=== PATIENT | female | born 1930 | race Caucasian/White ===

== ENCOUNTER → 2016-10-02 | Outpatient (CLI) | payer MEDICARE, MEDICAID ==
[~2016-10-02] MED LIST: ACETAMINOPHEN500 M3 PO; ACYCLOVIR800 MG PO; ALDACTONE 25MG25 MG NG; BAYER ASPIRIN C81 MG PO; CALCITRIOL0.5 MCG PO; CARDIZEM CD120 MG PO; CARLSON VITAM2000 IU PO; CARVEDILOL3.125 MG PO; CLOPIDOGREL75 MG PO; DILTIAZEM HCL120 MG PO; FISH OIL1000 MG PO; GABAPENTIN100 M1 PO; GARLIC OIL1000 M1 PO; GARLIC OIL1000 MG PO; GARLIC500 MG PO; K-DUR 20MEQ TA20 MEQ PO; LASIX 20MG. TAB20 MG PO; MAREPA1200 MG PO; MECLIZINE HYDRO25 MG PO; MELATONIN5 M3 PO; METOPROLOL 25 M25 MG PO; NATURAL FISH1200 MG PO; OMNICEF 300 MG300 MG PO; PANTOPRAZOLE SO40 MG PO; POTASSIUM CHLO20 ME2 PO; SERTRALINE 50MG50 MG PO; SPIRONOLACTONE25 MG PO; TRIAMCINOL15 GM/TUBE TP; TRILEPTAL300 M1 PO; TYLENOL 8 HOUR650 MG PO; TYLENOL ES500 MG PO; VERAPAMIL HCL240 M1 PO; VITAMIN D1000 IU PO; WARFARIN2 MG PO; ZETIA10 MG PO
--- NOTE | 2016-10-03 22:29 | RADIOLOGY REPORT PS360 ---
DEXA SCAN.-BONE DENSITY STUDY HIPS AND LUMBAR SPINE HISTORY: Postmenopausal female postmenopausal female a 5-year-old. Taking vitamin D. Renal disease. TECHNIQUE: DEXA scan hip and lumbar spine The most complete data summary and color graphic presentation of the today's ( and any prior ) DEXA findings are available in PACS. Definition and treatment guidelines included. COMPARISON: December 2014 LUMBAR SPINE: Osteopenia L2 vertebral body demonstrates the lowest T score -3.9 with BMD0.735 g/cm sq = osteoporosis Also osteoporosis noted at L1 with a T score of -2.6 Overall mean lumbar L1-L4 T score -2.4 with BMD0.895 g/cm sq . 2015 prior DEXA the mean T score -1.7 with BMD was0.977g/cm sq Thus when comparing today's study to the prior exam there's been a 8.4% decreased mean bone density at the lumbar spine 2014 study RIGHT HIP: (Left hip not imaged) Femoral neck density is best predictor of hip fracture risk . Right femoral neck demonstrates T score -2.4 with BMD0.698 g/cm sq . Overall right hip Hip Mean T score -2.1 with BMD0.748 g/cm sq . December 2014 right hip T score -2.0 with mean BMD0.76 g/cm sq Thus this reflects a 1.6% decreasein overall mean bone density at the hips in the interval. Radius included today. DistalUD = T score -1.8 with BMD 0.386 Distal 33% radius with T score -3.1 with BMD 0.61 IMPRESSION 1. LUMBAR SPINE: Osteopenia. Overall T score -2.4 Osteoporosis at L2 4 T score = -3.9 . Osteoporosis at L1 with T score -2.6 2. RIGHT HIP . Osteopenia. With overall T score -2.1 3. Distal 1/3right radius with Osteoporosis. T score = -3.1 WHO criteria for post-menopausal, Women: Normal: T-score at or above -1 SD Osteopenia: T-score between -1 and -2.5 SD Osteoporosis: T-score at or below -2.5 SD
== END ==
LOC: RAD 10:24
DX: M81.0 Age-related osteoporosis without current pathological fracture (principal)

== ENCOUNTER → 2016-10-24 | Outpatient (CLI) | payer MEDICARE, MEDICAID ==
[2016-10-24 13:17] LABS: BUN 24 mg/dL (7-18)
[2016-10-24 13:18] LABS: GFR (ESTIMATED) 27 ML/MIN (59-)
[2016-10-26 14:37] LABS: Osteocalcin 34.2 ng/mL (.); Tandem-R Ostase 17.7 ug/L (.)
[2016-10-26 20:36] LABS: N-Telopeptide 16.6 (6.2-19.0)
== END ==
LOC: LAB 09:44
PROVIDERS: Internal Medicine Nephrology
DX: N18.3 Chronic kidney disease, stage 3 (moderate) (principal); I10 Essential (primary) hypertension; E78.2 Mixed hyperlipidemia; M81.0 Age-related osteoporosis without current pathological fracture

== ENCOUNTER → 2017-05-10 | Outpatient (CLI) | payer MEDICARE, MEDICAID ==
[~2017-05-10] MED LIST changes: +BISOPROLOL 5MG T5 MG PO; +MIRTAZAPINE15 M1 PO; +TYLENOL WITH CO1 TA1 PO
--- NOTE | 2017-05-10 10:44 | RADIOLOGY REPORT PS360 ---
HIP RT 2-3V W/PELVIS IF PERFOR HISTORY: Follow-up fracture/ORIF HEALING OF RT FEMUR FX ORDERING PHYSICIAN: Martin Knapp MD PATIENT AGE: 86 years COMPARISON: 03/29/2017 FINDINGS: Status post ORIF right subtrochanteric fracture with a long intramedullary ruthann in the nail in place stabilizing the fracture fragments which are in good alignment with some developing callus formation. IMPRESSION: Healing right subtrochanteric femoral neck fracture status post ORIF with good alignment
== END ==
LOC: RAD 09:27
DX: S72.141D Displaced intertrochanteric fracture of right femur, subsequent encounter for closed fracture with routine healing (principal)

== ENCOUNTER → 2017-07-19 | Outpatient (CLI) | payer MEDICARE, MEDICAID ==
--- NOTE | 2017-07-19 11:27 | RADIOLOGY REPORT PS360 ---
HIP RT 2-3V W/PELVIS IF PERFOR HISTORY: Follow-up fracture RT HIP FX ORDERING PHYSICIAN: Martin Knapp MD PATIENT AGE: 86 years COMPARISON: 05/10/2017 FINDINGS: No change right sciatic gamma nail with long intramedullary ruthann. Healing fracture involves the intertrochanteric region of the proximal femur with mild medial displacement of the distal fracture fragment x 11 mm. 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 IMPRESSION: No change status post ORIF right subtrochanteric fracture with good alignment
== END ==
LOC: RAD 09:23
DX: S72.141D Displaced intertrochanteric fracture of right femur, subsequent encounter for closed fracture with routine healing (principal)